=== PATIENT | female | born 1985 | race Caucasian/White ===

== ENCOUNTER 2020-03-28 11:25 | Emergency (ER) | payer OTHER ==
[~2020-03-28] VITALS: Ht 175.3 cm; Wt 94.1 kg
[2020-03-28 13:13] VITALS: BP 138/84; PULSE 78; TEMP 98.2
== END 2020-03-28 13:33 | disposition home or self-care (01) ==
LOC: COL.ER 11:25
DX: R47.1 Dysarthria and anarthria (principal); F17.210 Nicotine dependence, cigarettes, uncomplicated; Z98.51 Tubal ligation status